=== PATIENT | female | born 1985 | race Caucasian/White ===

== ENCOUNTER 2018-04-03 14:33 | Emergency (ER) | payer OTHER ==
[~2018-04-03] VITALS: Ht 165.1 cm; Wt 135.0 kg
[2018-04-03 14:39] VITALS: BP 136/81; PULSE 89; RESP 16; TEMP 98.5; O2SAT 100
[2018-04-03] MEDS ORDERED: LAMO100 PO (14:58)
[2018-04-03] MEDS ORDERED: GABA800T PO (14:58)
[2018-04-03] MEDS ORDERED: CELE20TA PO (14:58)
[2018-04-03] MEDS ORDERED: CLON1 PO (14:58)
[2018-04-03] MEDS ORDERED: SYNT112T PO (14:58)
[2018-04-03] MEDS ORDERED: SODIUM CHLORIDE 0.9% FLUSH 10 ML FLUSH IV FLUSH PRN (15:00)
[2018-04-03 15:26] LABS: BILIRUBIN, URINE NEG (NEG); BLOOD, URINE MOD (NEG); GLUCOSE,URINE NEG (NEG); KETONE, URINE NEG (NEG); NITRITE,URINE NEG (NEG); URINE COLOR YELLOW (YELLW/STRAW); URINE LEUKOCYTE ESTERASE NEG (NEG)
[2018-04-03 15:27] LABS: AUTOMATED NEUTROPHIL # 4.1 TH/MM3 (1.8-7.7); BASOPHIL # 0.2 TH/MM3 (0-0.2); BASOPHIL % 2.6 % (0.0-2.0); EOSINOPHIL # 0.1 TH/MM3 (0-0.4); EOSINOPHIL % 1.7 % (0.0-4.0); HEMATOCRIT 33.2 % (35.0-46.0); HEMOGLOBIN 10.9 GM/DL (11.6-15.3); LYMPH % 22.9 % (9.0-44.0); LYMPHOCYTE # 1.4 TH/MM3 (1.0-4.8); MEAN CELL VOLUME 77.3 FL (80.0-100.0); MEAN CORPUSCULAR HEMOGLOBIN 25.3 PG (27.0-34.0); MEAN CORPUSCULAR HGB CONC 32.7 % (32.0-36.0); MEAN PLATELET VOLUME 7.7 FL (7.0-11.0); MONO % 6.8 % (0.0-8.0); MONOCYTE # 0.4 TH/MM3 (0-0.9); PLATELET COUNT 444 TH/MM3 (150-450); RED BLOOD COUNT 4.29 MIL/MM3 (4.00-5.30); RED CELL DISTRIBUTION WIDTH 15.9 % (11.6-17.2); WHITE BLOOD COUNT 6.2 TH/MM3 (4.0-11.0)
[2018-04-03] MEDS ORDERED: MORPHINE SULFATE 4 MG/ML INJ IV PUSH ONE ×2 (15:30→18:00)
--- NOTE | 2018-04-03 15:34 | PD ---
HPI Chief Complaint: GI Complaint Time Seen by Provider: 14:49 Travel History International Travel<30 days: No Contact w/Intl Traveler<30days: No Traveled to known affect area: No History of Present Illness HPI Patient is a 32-year-old female who presents to the emergency room for evaluation of right lower quadrant abdominal pain. Patient reports that 2 hours prior to arrival, she was driving her car on her way to [place], reports that she began to have right lower quadrant abdominal pain. Patient reports that pain is nonradiating nature, reports that pain has been constant. Patient denies any nausea or vomiting with symptoms. Patient denies any constipation or diarrhea. Patient with no fever or chills. Patient denies any dysuria, urinary urgency or frequency. Patient denies any pelvic discharge or bleeding, denies history of ovarian cysts in the past. Patient reports that she has had multiple abdominal surgeries in the past including a gastric bypass surgery as well as a cholecystectomy. PFSH Past Medical History Bipolar Disorder: Yes Diminished Hearing: No Thyroid Disease: Yes Tetanus Vaccination: < 5 Years Influenza Vaccination: No ?: Not LMP: 03/02/18 Past Surgical History Abdominal Surgery: Yes (GASTRIC BYPASS, PERFORATED ULCER, ADHESIONS, EXP LAP, INCISIONAL HERNIA ) Cholecystectomy: Yes Social History Alcohol Use: Yes (RARE) Tobacco Use: Yes (E CIGS) Substance Use: No Allergies-Medications (Allergen,Severity, Reaction): Coded Allergies: NSAIDS (Non-Steroidal Anti-Inflamma (Verified Allergy, Unknown, Ulcers, ) Penicillins (Verified Allergy, Unknown, Hives, 04/03/18) tramadol (Verified Allergy, Unknown, Seizures, 04/03/18) Reported Meds & Prescriptions Reported Meds & Active Scripts Active Macrobid (Nitrofurantoin Monoh/Nitrofur Macro) 100 Mg Cap 100 Mg PO BID 10 Days Reported Synthroid (Levothyroxine Sodium) 112 Mcg Tab 112 Mcg PO DAILY Klonopin (Clonazepam) 1 Mg Tab 1 Mg PO TID Gabapentin 800 Mg Tab 800 Mg PO TID Lamictal (Lamotrigine) 100 Mg Tab 100 Mg PO BID Celexa (Citalopram Hydrobromide) 20 Mg Tab 20 Mg PO DAILY Review of Systems General / Constitutional: No: Fever, Chills Eyes: No: Visual changes HENT: No: Headaches Cardiovascular: No: Chest Pain or Discomfort Respiratory: No: Shortness of Breath Gastrointestinal: Positive: Abdominal Pain, No: Nausea, Vomiting, Diarrhea, Constipation Genitourinary: No: Urgency, Frequency, Dysuria Musculoskeletal: No: Pain Skin: No Rash Neurologic: No: Weakness Psychiatric: No: Depression Endocrine: No: Polydipsia Hematologic/Lymphatic: No: Easy Bruising Physical Exam Narrative GENERAL: Moderate distress SKIN: Focused skin assessment warm/dry. HEAD: Atraumatic. Normocephalic. EYES: Pupils equal and round. No scleral icterus. No injection or drainage. ENT: No nasal bleeding or discharge. Mucous membranes pink and moist. NECK: Trachea midline. No JVD. CARDIOVASCULAR: Regular rate and rhythm. No murmur appreciated. RESPIRATORY: No accessory muscle use. Clear to auscultation. Breath sounds equal bilaterally. GASTROINTESTINAL: Abdomen soft, patient with tenderness of right lower quadrant with guarding on exam, nondistended. Hepatic and splenic margins not palpable. : exam performed with RN at bedside, patient with no CMT or adnexal tenderness , patient with small amount of blood in vaginal vault MUSCULOSKELETAL: No obvious deformities. No clubbing. No cyanosis. No edema. NEUROLOGICAL: Awake and alert. No obvious cranial nerve deficits. Motor grossly within normal limits. Normal speech. PSYCHIATRIC: Appropriate mood and affect; insight and judgment normal. Data Data Last Documented VS Vital Signs Date Time Temp Pulse Resp B/P (MAP) Pulse Ox O2 Delivery O2 Flow Rate FiO2 04/03/18 17:08 18 04/03/18 14:39 98.5 89 136/81 (99) 100 Orders Orders Complete Blood Count With Diff (04/03/18 14:49) Comprehensive Metabolic Panel (04/03/18 14:49) Lipase (04/03/18 14:49) Urinalysis - C+S If Indicated (04/03/18 14:49) Iv Access Insert/Monitor (04/03/18 14:49) Ecg Monitoring (04/03/18 14:49) Oximetry (04/03/18 14:49) Sodium Chloride 0.9% Flush (Ns Flush) (04/03/18 15:00) Ed Urine Pregnancytest Poc (04/03/18 14:49) Ct Abd/Pel W Iv Contrast(Rout) (04/03/18 15:29) Morphine Inj (Morphine Inj) (04/03/18 15:30) Urine Culture (04/03/18 14:40) Acetaminophen 1000 Mg/100 Ml (Ofirmev 10 (04/03/18 16:15) Iohexol 350 Inj (Omnipaque 350 Inj) (04/03/18 16:28) Gc And Chlamydia Pcr (04/03/18 17:09) Wet Prep Profile (04/03/18 17:09) Ondansetron Odt (Zofran Odt) (04/03/18 17:15) Ceftriaxone Inj (Rocephin Inj) (04/03/18 17:15) Morphine Inj (Morphine Inj) (04/03/18 18:00) Us Pelvis Comp W Dop Transvag (04/03/18 17:09) Ed Discharge Order (04/03/18 19:25) Labs Laboratory Tests Test 04/03/18 14:40 04/03/18 15:00 04/03/18 18:00 Urine Collection Type CLEAN CATCH Urine Color YELLOW Urine Turbidity CLEAR Urine pH 6.0 Urine Specific [place]win GREATER/EQUAL 1.030 Urine Protein TRACE mg/dL Urine Glucose (UA) NEG mg/dL Urine Ketones NEG mg/dL Urine Occult Blood MOD Urine Nitrite NEG Urine Bilirubin NEG Urine Urobilinogen 0.2 MG/DL Urine Leukocyte Esterase NEG Urine RBC 10-14 /hpf Urine WBC 25-49 /hpf Urine Squamous Epithelial Cells > 8 /hpf Urine Bacteria MOD /hpf Microscopic Urinalysis Comment CULTURE INDICATED Urine Collection Time 14:40 White Blood Count 6.2 TH/MM3 Red Blood Count 4.29 MIL/MM3 Hemoglobin 10.9 GM/DL Hematocrit 33.2 % Mean Corpuscular Volume 77.3 FL Mean Corpuscular Hemoglobin 25.3 PG Mean Corpuscular Hemoglobin Concent 32.7 % Red Cell Distribution Width 15.9 % Platelet Count 444 TH/MM3 Mean Platelet Volume 7.7 FL Neutrophils (%) (Auto) 66.0 % Lymphocytes (%) (Auto) 22.9 % Monocytes (%) (Auto) 6.8 % Eosinophils (%) (Auto) 1.7 % Basophils (%) (Auto) 2.6 % Neutrophils # (Auto) 4.1 TH/MM3 Lymphocytes # (Auto) 1.4 TH/MM3 Monocytes # (Auto) 0.4 TH/MM3 Eosinophils # (Auto) 0.1 TH/MM3 Basophils # (Auto) 0.2 TH/MM3 CBC Comment DIFF FINAL Differential Comment Blood Urea Nitrogen 11 MG/DL Creatinine 0.81 MG/DL Random Glucose 92 MG/DL Total Protein 7.4 GM/DL Albumin 3.6 GM/DL Calcium Level 8.6 MG/DL Alkaline Phosphatase 115 U/L Aspartate Amino Transf (AST/SGOT) 16 U/L Alanine Aminotransferase (ALT/SGPT) 22 U/L Total Bilirubin 0.3 MG/DL Sodium Level 137 MEQ/L Potassium Level 4.4 MEQ/L Chloride Level 110 MEQ/L Carbon Dioxide Level 20.7 MEQ/L Anion Gap 6 MEQ/L Estimat Glomerular Filtration Rate 82 ML/MIN Lipase 129 U/L Clue Cells (Wet Prep) NONE SEEN Vaginal Trichomonas (Wet Prep) NONE SEEN Vaginal Yeast (Wet Prep) NONE SEEN MDM Medical Decision Making Medical Screen Exam Complete: Yes Emergency Medical Condition: Yes Medical Record Reviewed: Yes Interpretation(s) Vital Signs Date Time Temp Pulse Resp B/P (MAP) Pulse Ox O2 Delivery O2 Flow Rate FiO2 04/03/18 14:39 98.5 89 16 136/81 (99) 100 Differential Diagnosis Appendicitis, ovarian cyst, ovarian torsion, gastroenteritis, uti, sbo Narrative Course Patient is a 32-year-old female who presents the emergency room with complaints of right lower quadrant abdominal pain which began 2 hours prior to arrival to the emergency room. During the course of the patients emergency department visit, the patients history, examination, and differential diagnosis were reviewed with the patient. The patient was placed on a front desk monitor with oximetry and frequent blood pressure monitoring. The patient had an IV access obtained and blood work sent for analysis. The patient was initially provided IV morphine for pain The patients laboratory studies were reviewed and remarkable for Laboratory Tests Test 04/03/18 14:40 04/03/18 15:00 Urine Collection Type CLEAN CATCH Urine Color YELLOW (YELLW/STRAW) Urine Turbidity CLEAR (CLEAR) Urine pH 6.0 (5.0-8.5) Urine Specific [place] GREATER/EQUAL 1.030 Urine Protein TRACE mg/dL (NEG-TRACE) Urine Glucose (UA) NEG mg/dL (NEG) Urine Ketones NEG mg/dL (NEG) Urine Occult Blood MOD (NEG) Urine Nitrite NEG (NEG) Urine Bilirubin NEG (NEG) Urine Urobilinogen 0.2 MG/DL (LESS THAN Urine Leukocyte Esterase NEG (NEG) Urine RBC 10-14 /hpf (0-3) Urine WBC 25-49 /hpf (0-5) Urine Squamous Epithelial Cells > 8 /hpf (0-5) Urine Bacteria MOD /hpf (NONE) Microscopic Urinalysis Comment CULTURE INDICATED Urine Collection Time 14:40 White Blood Count 6.2 TH/MM3 (4.0-11.0) Red Blood Count 4.29 MIL/MM3 (4.00-5.30) Hemoglobin 10.9 GM/DL (11.6-15.3) Hematocrit 33.2 % (35.0-46.0) Mean Corpuscular Volume 77.3 FL (80.0-100.0) Mean Corpuscular Hemoglobin 25.3 PG (27.0-34.0) Mean Corpuscular Hemoglobin Concent 32.7 % (32.0-36.0) Red Cell Distribution Width 15.9 % (11.6-17.2) Platelet Count 444 TH/MM3 (150-450) Mean Platelet Volume 7.7 FL (7.0-11.0) Neutrophils (%) (Auto) 66.0 % (16.0-70.0) Lymphocytes (%) (Auto) 22.9 % (9.0-44.0) Monocytes (%) (Auto) 6.8 % (0.0-8.0) Eosinophils (%) (Auto) 1.7 % (0.0-4.0) Basophils (%) (Auto) 2.6 % (0.0-2.0) Neutrophils # (Auto) 4.1 TH/MM3 (1.8-7.7) Lymphocytes # (Auto) 1.4 TH/MM3 (1.0-4.8) Monocytes # (Auto) 0.4 TH/MM3 (0-0.9) Eosinophils # (Auto) 0.1 TH/MM3 (0-0.4) Basophils # (Auto) 0.2 TH/MM3 (0-0.2) CBC Comment DIFF FINAL Differential Comment Blood Urea Nitrogen 11 MG/DL (7-18) Creatinine 0.81 MG/DL (0.50-1.00) Random Glucose 92 MG/DL (74-106) Total Protein 7.4 GM/DL (6.4-8.2) Albumin 3.6 GM/DL (3.4-5.0) Calcium Level 8.6 MG/DL (8.5-10.1) Alkaline Phosphatase 115 U/L (45-117) Aspartate Amino Transf (AST/SGOT) 16 U/L (15-37) Alanine Aminotransferase (ALT/SGPT) 22 U/L (10-53) Total Bilirubin 0.3 MG/DL (0.2-1.0) Sodium Level 137 MEQ/L (136-145) Potassium Level 4.4 MEQ/L (3.5-5.1) Chloride Level 110 MEQ/L (98-107) Carbon Dioxide Level 20.7 MEQ/L (21.0-32.0) Anion Gap 6 MEQ/L (5-15) Estimat Glomerular Filtration Rate 82 ML/MIN (>89) Lipase 129 U/L (73-393) Radiology studies were reviewed and remarkable for Last Impressions Abdomen/Pelvis CT 04/03/18 1529 Signed Impressions: Service Date/Time: Tuesday, April 03, 2018 16:21 - CONCLUSION: 1. Normal appendix. 2. Slightly prominent endometrium which may be due to patient's phase of menstrual cycle. 3. Postsurgical changes of prior gastric bypass. 4. No definite acute CT abnormality to explain patient's abdominal pain. Rex Rubio MD Patient reevaluated, pt reports that she is not feeling any better, will remedicate, given her continued pain, pelvic us ordered, patient is agreeable to pelvic exam 5:25 PM: Vaginal exam was performed, patient with scant amount of blood in vaginal vault, patient with no CMT or adnexal tenderness. Pelvic ultrasound pending. Last Impressions Abdomen/Pelvis/Transvag US 04/03/18 [id number] Signed Impressions: Service Date/Time: Tuesday, April 03, 2018 18:10 - CONCLUSION: 1. Limited evaluation due to patient's body habitus. 2. Probable nabothian cysts. 3. Otherwise, unremarkable pelvic ultrasound. Rex Rubio MD Abdomen/Pelvis CT 04/03/18 1528 Signed Impressions: Service Date/Time: Tuesday, April 03, 2018 16:21 - CONCLUSION: 1. Normal appendix. 2. Slightly prominent endometrium which may be due to patient's phase of menstrual cycle. 3. Postsurgical changes of prior gastric bypass. 4. No definite acute CT abnormality to explain patient's abdominal pain. Rex Rubio MD Pelvic ultrasound essentially unremarkable, patient's only pertinent positive is UA which shows 25-49 white blood cells, 10-14 white blood cells, moderate bacteria. Patient was given a gram of Rocephin in the emergency room, urine culture was sent. Patient will follow up with urine culture from today. Signs and symptoms of an acute abdomen was reviewed with patient in detail, she will return to the emergency room as needed. Diagnosis Primary Impression: Abdominal pain Qualified Codes: R10.30 - Lower abdominal pain, unspecified Additional Impression: UTI (urinary tract infection) Qualified Codes: N30.01 - Acute cystitis with hematuria Patient Instructions: General Instructions, Narcotic given in the ED Additional Instructions: Please provide patient with a copy of their lab work and studies at discharge* * Please follow up with your primary care doctor in 1-2 days Return to the ER if symptoms worsen or progress Return to the ER as needed Please follow-up with all cultures from today Med/Other Pt SpecificInfo: Prescription(s) given Scripts Nitrofurantoin Monohydrate Macrocrystals (Macrobid) 100 Mg Cap 100 MG PO BID for Infection for 10 Days, #20 CAP 0 Refills Prov: Carly Bliss DO 04/03/18 Disposition: 01 DISCHARGE HOME Condition: Stable Carly Bliss DO April 03, 2018 15:34
[2018-04-03 15:36] LABS: CHLORIDE 110 MEQ/L (98-107); SODIUM (NA) 137 MEQ/L (136-145)
[2018-04-03 15:40] LABS: ALBUMIN 3.6 GM/DL (3.4-5.0); BICARBONATE 20.7 MEQ/L (21.0-32.0); BLOOD UREA NITROGEN 11 MG/DL (7-18); CALCIUM 8.6 MG/DL (8.5-10.1); GLUCOSE,RANDOM 92 MG/DL (74-106)
[2018-04-03 15:41] LABS: BACTERIA, URINE MOD /hpf; SQUAMOUS EPITHELIAL CELL URINE > 8 /hpf (0-5)
[2018-04-03 15:43] LABS: ALT (GPT) 22 U/L (10-53); AST (GOT) 16 U/L (15-37); CREATININE 0.81 MG/DL (0.50-1.00); GLOMERULAR FILTRATION RATE 82 ML/MIN (>89)
[2018-04-03 15:44] LABS: TOTAL BILIRUBIN ADULT 0.3 MG/DL (0.2-1.0)
[2018-04-03 15:45] LABS: TOTAL PROTEIN 7.4 GM/DL (6.4-8.2)
[2018-04-03 15:46] LABS: ALKALINE PHOSPHATASE 115 U/L (45-117)
[2018-04-03] MEDS ORDERED: ACETAMINOPHEN 1000 MG/100 ML 100 ML IV ONE (16:15)
[2018-04-03] MEDS ORDERED: IOHEXOL 350 MG/ML 10 ML VIAL (for RAD DIAG) IVCONTRAST ONE (16:28)
--- NOTE | 2018-04-03 16:58 | RADRPT ---
EXAM DATE/TIME: 04/03/2018 16:21 [facility] COMPARISON: No previous studies available for comparison. INDICATIONS : Right lower quadrant pain. IV CONTRAST: 95 cc Omnipaque 350 (iohexol) IV ORAL CONTRAST: No oral contrast ingested. RADIATION DOSE: 22.39 CTDIvol (mGy) MEDICAL HISTORY : None SURGICAL HISTORY : Gastric bypass. ENCOUNTER: Initial ACUITY: 1 day PAIN SCALE: 7/10 LOCATION: Right lower quadrant TECHNIQUE: Volumetric scanning of the abdomen and pelvis was performed. Using automated exposure control and ad justment of the mA and/or kV according to patient size, radiation dose was kept as low as reasonably achievable to obtain optimal diagnostic quality images. DICOM format image data is available electro nically for review and comparison. FINDINGS: LOWER LUNGS: The visualized lower lungs are clear. LIVER: Homogeneous density without lesion. There is no dilation of the biliary tree. SPLEEN: Normal size without lesion. PANCREAS: Within normal limits. KIDNEYS: Normal in size and shape. There is no mass, stone or hydronephrosis. ADRENAL GLANDS: Within normal limits. VASCULAR: There is no aortic aneurysm. BOWEL/MESENTERY: Postsurgical changes of prior gastric bypass. Appendix is visualized and within normal limits. Bowel is unremarkable without evidence for obstruction. No free fluid or drainable fluid collections. No fr ee air. ABDOMINAL WALL: Diastases with eventration of abdominal fat but no definite hernia. RETROPERITONEUM: There is no lymphadenopathy. BLADDER: No wall thickening or mass. REPRODUCTIVE: Slightly prominent endometrium. INGUINAL: There is no lymphadenopathy or hernia. MUSCULOSKELETAL: Within normal limits for patient age. CONCLUSION: 1. Normal appendix. 2. Slightly prominent endometrium which may be due to patient's phase of menstrual cycle. 3. Postsurgical changes of prior gastric bypass. 4. No definite acute CT abnormality to explain patient's abdominal pain. Rex Rubio MD on April 03, 2018 at 16:52 Board Certified Radiologist. This report was verified electronically.
[2018-04-03 17:08] VITALS: RESP 18
[2018-04-03] MEDS ORDERED: cefTRIAXone INJ 1,000 MG in SODIUM CHLORIDE 0.9% INJ 100 ML IV ONE (17:15)
[2018-04-03] MEDS ORDERED: ONDANSETRON ODT 4 MG TAB PO ONE (17:15)
--- NOTE | 2018-04-03 18:55 | RADRPT ---
EXAM DATE/TIME: 04/03/2018 18:10 [facility] COMPARISON: No previous studies available for comparison. INDICATIONS : Pelvic pain. MEDICAL HISTORY : Thyroid disease. Bipolar disorder. Tobacco use. SURGICAL HISTORY : Cholecystectomy. Gastric bypass. Perforated ulcer. Adhesions. Exploratory laprascopy. Incisional hernia. ENCOUNTER: Initial ACUITY: 1 day PAIN SCORE: 6/10 LOCATION: Bilateral pelvis MEASUREMENTS: UTERUS: 6.9 x 4.2 x 3.8 cm ENDOMETRIAL STRIPE: 7 mm RIGHT OVARY: 2.0 x 1.5 x 1.2 cm LEFT OVARY: 2.6 x 1.4 x 1.2 cm FINDINGS: Limited evaluation due to patient's body habitus. UTERUS: The myometrium has homogeneous echotexture without mass. Several small subcentimeter cystic lesions in the cervix likely reflect nabothian cysts. RIGHT OVARY: Ovary contains no mass or significant cystic lesion. LEFT OVARY: Ovary contains no mass or significant cystic lesion. MISCELLANEOUS: No free fluid. CONCLUSION: 1. Limited evaluation due to patient's body habitus. 2. Probable nabothian cysts. 3. Otherwise, unremarkable pelvic ultrasound. Rex Rubio MD on April 03, 2018 at 18:51 Board Certified Radiologist. This report was verified electronically.
[2018-04-03] MEDS ORDERED: MACR100C2 PO (19:22)
[2018-04-03 19:35] VITALS: BP 128/78
== END 2018-04-03 19:35 | disposition home or self-care (01) ==
LOC: PHED 14:33
DX: R10.30 Lower abdominal pain, unspecified (principal); N30.01 Acute cystitis with hematuria; E07.9 Disorder of thyroid, unspecified
CPT/HCPCS: 74177; 76830; 76856; 80053; 81001; 83690; 84703; 85025; 87086; 87210; 87491; 87591; 93975; 96365; 96367; 96375; 99285; J0131; J0696; J2270; Q9967

== ENCOUNTER 2018-04-19 20:24 | Emergency (ER) | payer OTHER ==
[~2018-04-19] VITALS: Ht 165.1 cm; Wt 135.1 kg
[~2018-04-19 20:24] MED LIST: CELE20TA PO; CLON1 PO; GABA800T PO; LAMO100 PO; MACR100C2 PO; SYNT112T PO
[2018-04-19 20:27] VITALS: BP 153/84; PULSE 124; RESP 18; TEMP 97.7; O2SAT 98
[2018-04-19] MEDS ORDERED: SODIUM CHLOR 0.9% 1000 ML INJ 1,000 ML IV SCH (20:43)
[2018-04-19] MEDS ORDERED: SODIUM CHLORIDE 0.9% FLUSH 10 ML FLUSH IV FLUSH PRN (20:45)
[2018-04-19] MEDS ORDERED: MORPHINE SULFATE 4 MG/ML INJ IV PUSH ONE (20:45)
[2018-04-19 21:10] LABS: BILIRUBIN, URINE NEG (NEG); BLOOD, URINE NEG (NEG); GLUCOSE,URINE NEG (NEG); KETONE, URINE 15 mg/dL (NEG); NITRITE,URINE NEG (NEG); URINE COLOR YELLOW (YELLW/STRAW); URINE LEUKOCYTE ESTERASE NEG (NEG)
[2018-04-19 21:11] LABS: AUTOMATED NEUTROPHIL # 9.3 TH/MM3 (1.8-7.7); BASOPHIL # 0.3 TH/MM3 (0-0.2); BASOPHIL % 2.5 % (0.0-2.0); EOSINOPHIL # 0.2 TH/MM3 (0-0.4); EOSINOPHIL % 1.7 % (0.0-4.0); HEMOGLOBIN 9.8 GM/DL (11.6-15.3); LYMPH % 16.2 % (9.0-44.0); MEAN CELL VOLUME 77.9 FL (80.0-100.0); MEAN CORPUSCULAR HEMOGLOBIN 23.8 PG (27.0-34.0); MEAN CORPUSCULAR HGB CONC 30.6 % (32.0-36.0); MEAN PLATELET VOLUME 7.1 FL (7.0-11.0); MONO % 6.1 % (0.0-8.0); MONOCYTE # 0.8 TH/MM3 (0-0.9); NEUT % 73.5 % (16.0-70.0); PLATELET COUNT 463 TH/MM3 (150-450); RED BLOOD COUNT 4.11 MIL/MM3 (4.00-5.30); RED CELL DISTRIBUTION WIDTH 17.2 % (11.6-17.2); WHITE BLOOD COUNT 12.6 TH/MM3 (4.0-11.0)
[2018-04-19 21:16] LABS: BACTERIA, URINE RARE /hpf; WBC, URINE 0-2 /hpf (0-5)
[2018-04-19 21:19] LABS: CHLORIDE 111 MEQ/L (98-107); SODIUM (NA) 138 MEQ/L (136-145)
[2018-04-19 21:22] LABS: ALBUMIN 3.6 GM/DL (3.4-5.0); CALCIUM 8.4 MG/DL (8.5-10.1)
[2018-04-19 21:23] LABS: BICARBONATE 19.1 MEQ/L (21.0-32.0); BLOOD UREA NITROGEN 21 MG/DL (7-18); GLUCOSE,RANDOM 77 MG/DL (74-106)
[2018-04-19 21:24] LABS: PROTHROMBIN TIME - PATIENT 10.3 SEC (9.8-11.6)
[2018-04-19 21:25] LABS: ALT (GPT) 20 U/L (10-53); AST (GOT) 17 U/L (15-37)
[2018-04-19 21:26] LABS: CREATININE 0.74 MG/DL (0.50-1.00); GLOMERULAR FILTRATION RATE 92 ML/MIN (>89)
[2018-04-19 21:27] LABS: TOTAL BILIRUBIN ADULT 0.2 MG/DL (0.2-1.0); TOTAL PROTEIN 7.7 GM/DL (6.4-8.2)
[2018-04-19 21:28] LABS: ALKALINE PHOSPHATASE 117 U/L (45-117)
[2018-04-19] MEDS ORDERED: ONDANSETRON ODT 4 MG TAB PO ONE (21:30)
[2018-04-19 21:32] VITALS: RESP 16; O2SAT 98
[2018-04-19] MEDS ORDERED: IOHEXOL 350 MG/ML 10 ML VIAL (for RAD DIAG) IVCONTRAST ONE (22:03)
[2018-04-19 22:12] VITALS: RESP 17
--- NOTE | 2018-04-19 22:14 | RADRPT ---
EXAM DATE: 04/19/2018 10:08 PM EDT AGE/SEX: 32 years / Female INDICATIONS: Right lower quadrant pain. CLINICAL DATA: This is the patient's initial encounter. Patient reports that signs and symptoms have been present for 2 days and indicates a pain score of 8/10. MEDICAL/SURGICAL HISTORY: None. Gastric bypass. Cholecystectomy. Incisional hernia repair. ORAL CONTRAST: No oral contrast ingested. RADIATION DOSE: 22.39 CTDI (mGy) COMPARISON: [facility], CT ABDOMEN & PELVIS W CONTRAST, 04/03/2018. . TECHNIQUE: Multiple contiguous axial images were obtained through the abdomen and pelvis following b olus infusion of 100 ml Omnipaque 350 (iohexol) nonionic water-soluble contrast as a single exam do se. No oral contrast ingested. Using automated exposure control and adjustment of the mA and/or kV a ccording to patient size, the radiation dose was kept as low as reasonably achievable to obtain optim al diagnostic quality images. FINDINGS: The patient is status post gastric bypass procedure. There is a broad-based abdominal wall hernia at the level of the umbilicus with diastases of the rectus musculature. No evidence of bowel obstruction , free fluid or free air. Spleen, pancreas, adrenal glands, kidneys, liver unremarkable. Cholecystect sai clips are present. The appendix is normal. There is no adenopathy or aneurysm. The uterus and ova juan are normal in appearance. The osseous structures are intact. Lung bases are clear. CONCLUSION: 1. No acute findings. Electronically signed by: Ziggy Morales MD 04/19/2018 10:13 PM EDT
[2018-04-19] MEDS ORDERED: ACETAMINOPHEN/HYDROcodone 325 MG/5 MG TAB PO ONE (22:30)
[2018-04-19 22:47] VITALS: BP 114/62
[2018-04-19] MEDS ORDERED: NORC5TAB PO (22:48)
--- NOTE | 2018-04-19 22:48 | PD ---
HPI Chief Complaint: Abdominal Pain Time Seen by Provider: 20:32 Travel History International Travel<30 days: No Contact w/Intl Traveler<30days: No Traveled to known affect area: No History of Present Illness HPI Patient is a 32-year-old female who comes in complaining of abdominal pain. She says the pain started today. She says the pain is on the right side of her abdomen with no radiation. She has had some nausea, but no vomiting. She has tried [id number] pain medicine without relief of her symptoms. She denies fever chills. She is moving her bowels normally. She has had multiple abdominal surgeries in the past and is known to have a ventral hernia. She denies any urinary symptoms or vaginal discharge. Severity is mild to moderate. PFSH Past Medical History Bipolar Disorder: Yes Diminished Hearing: No Thyroid Disease: Yes Tetanus Vaccination: < 5 Years Influenza Vaccination: No ?: Not LMP: 04/14/18 Past Surgical History Abdominal Surgery: Yes (GASTRIC BYPASS, PERFORATED ULCER, ADHESIONS, EXP LAP, INCISIONAL HERNIA ) Cholecystectomy: Yes Social History Alcohol Use: Yes (RARE) Tobacco Use: Yes (E CIGS) Substance Use: No Allergies-Medications (Allergen,Severity, Reaction): Coded Allergies: NSAIDS (Non-Steroidal Anti-Inflamma (Verified Allergy, Unknown, Ulcers, 04/19/18) Penicillins (Verified Allergy, Unknown, Hives, 04/19/18) tramadol (Verified Allergy, Unknown, Seizures, 04/19/18) Reported Meds & Prescriptions Reported Meds & Active Scripts Active Reported Synthroid (Levothyroxine Sodium) 112 Mcg Tab 112 Mcg PO DAILY Klonopin (Clonazepam) 1 Mg Tab 1 Mg PO TID Gabapentin 800 Mg Tab 800 Mg PO TID Lamictal (Lamotrigine) 100 Mg Tab 100 Mg PO BID Celexa (Citalopram Hydrobromide) 20 Mg Tab 20 Mg PO DAILY Review of Systems Except as stated in HPI: all other systems reviewed are Neg General / Constitutional: No: Fever, Chills HENT: No: Headaches, Lightheadedness Cardiovascular: No: Chest Pain or Discomfort Respiratory: No: Shortness of Breath Gastrointestinal: Positive: Nausea, Abdominal Pain, No: Vomiting Genitourinary: No: Dysuria Musculoskeletal: No: Myalgias, Edema Skin: No Rash, No Change in Pigmentation Neurologic: No: Weakness, Dizziness Physical Exam Narrative GENERAL: Awake and alert, in no acute distress. SKIN: Focused skin assessment warm/dry. No wounds or signs of infection. HEAD: Atraumatic. Normocephalic. EYES: Pupils equal and round. No scleral icterus. ENT: Mucous membranes pink and moist. NECK: Trachea midline. No JVD. CARDIOVASCULAR: Regular rate and rhythm. No murmur appreciated. RESPIRATORY: No accessory muscle use. Clear to auscultation. Breath sounds equal bilaterally. GASTROINTESTINAL: Abdomen soft, nondistended. Tender to palpation of the right middle abdomen. No rebound or guarding. MUSCULOSKELETAL: No obvious deformities. No clubbing. No cyanosis. No edema. NEUROLOGICAL: Awake and alert. No obvious cranial nerve deficits. Motor grossly within normal limits. Normal speech. PSYCHIATRIC: Appropriate mood and affect; insight and judgment normal. Data Data Last Documented VS Vital Signs Date Time Temp Pulse Resp B/P (MAP) Pulse Ox O2 Delivery O2 Flow Rate FiO2 04/19/18 22:12 17 04/19/18 21:32 98 Room Air 04/19/18 20:27 97.7 124 153/84 (107) Orders Orders Complete Blood Count With Diff (04/19/18 20:43) Comprehensive Metabolic Panel (04/19/18 20:43) Lipase (04/19/18 20:43) Lactic Acid (04/19/18 20:43) Prothrombin Time / Inr (Pt) (04/19/18 20:43) Act Partial Throm Time (Ptt) (04/19/18 20:43) Urinalysis - C+S If Indicated (04/19/18 20:43) Ct Abd/Pel W Iv Contrast(Rout) (04/19/18 20:43) Iv Access Insert/Monitor (04/19/18 20:43) Ecg Monitoring (04/19/18 20:43) Oximetry (04/19/18 20:43) Morphine Inj (Morphine Inj) (04/19/18 20:45) Sodium Chlor 0.9% 1000 Ml Inj (Ns 1000 M (04/19/18 20:43) Sodium Chloride 0.9% Flush (Ns Flush) (04/19/18 20:45) Ed Urine Pregnancytest Poc (04/19/18 20:43) Ondansetron Odt (Zofran Odt) (04/19/18 21:30) Iohexol 350 Inj (Omnipaque 350 Inj) (04/19/18 22:03) Acetamin-Hydrocod 325-5 Mg ([place] 5-325 (04/19/18 22:30) Labs Laboratory Tests Test 04/19/18 21:00 White Blood Count 12.6 TH/MM3 Red Blood Count 4.11 MIL/MM3 Hemoglobin 9.8 GM/DL Hematocrit 32.0 % Mean Corpuscular Volume 77.9 FL Mean Corpuscular Hemoglobin 23.8 PG Mean Corpuscular Hemoglobin Concent 30.6 % Red Cell Distribution Width 17.2 % Platelet Count 463 TH/MM3 Mean Platelet Volume 7.1 FL Neutrophils (%) (Auto) 73.5 % Lymphocytes (%) (Auto) 16.2 % Monocytes (%) (Auto) 6.1 % Eosinophils (%) (Auto) 1.7 % Basophils (%) (Auto) 2.5 % Neutrophils # (Auto) 9.3 TH/MM3 Lymphocytes # (Auto) 2.0 TH/MM3 Monocytes # (Auto) 0.8 TH/MM3 Eosinophils # (Auto) 0.2 TH/MM3 Basophils # (Auto) 0.3 TH/MM3 CBC Comment AUTO DIFF Differential Comment AUTO DIFF CONFIRMED Platelet Estimate HIGH Platelet Morphology Comment NORMAL Prothrombin Time 10.3 SEC Prothromb Time International Ratio 1.0 RATIO Activated Partial Thromboplast Time 22.6 SEC Urine Color YELLOW Urine Turbidity CLEAR Urine pH 6.0 Urine Specific [place] 1.025 Urine Protein NEG mg/dL Urine Glucose (UA) NEG mg/dL Urine Ketones 15 mg/dL Urine Occult Blood NEG Urine Nitrite NEG Urine Bilirubin NEG Urine Urobilinogen 0.2 MG/DL Urine Leukocyte Esterase NEG Urine WBC 0-2 /hpf Urine Bacteria RARE /hpf Microscopic Urinalysis Comment CULT NOT INDICATED Blood Urea Nitrogen 21 MG/DL Creatinine 0.74 MG/DL Random Glucose 77 MG/DL Total Protein 7.7 GM/DL Albumin 3.6 GM/DL Calcium Level 8.4 MG/DL Alkaline Phosphatase 117 U/L Aspartate Amino Transf (AST/SGOT) 17 U/L Alanine Aminotransferase (ALT/SGPT) 20 U/L Total Bilirubin 0.2 MG/DL Sodium Level 138 MEQ/L Potassium Level 4.2 MEQ/L Chloride Level 111 MEQ/L Carbon Dioxide Level 19.1 MEQ/L Anion Gap 8 MEQ/L Estimat Glomerular Filtration Rate 92 ML/MIN Lactic Acid Level 1.8 mmol/L Lipase 217 U/L [facility] Medical Decision Making Medical Screen Exam Complete: Yes Emergency Medical Condition: Yes Medical Record Reviewed: Yes Differential Diagnosis Hernia versus appendicitis versus colitis versus gastritis Narrative Course Patient is a 32-year-old female comes in complaining of abdominal pain. Exam shows mild tenderness to the right side of the abdomen. IV established, labs sent. Labs showing mild elevation white blood cell count, no other acute abnormalities. CT abdomen and pelvis performed shows the hernia, no acute abnormalities. Last 24 hours Impressions Abdomen/Pelvis CT 04/19/182042 Signed Impressions: CONCLUSION: 1. No acute findings. Patient given pain medicine, IV fluids, Zofran. She reports feeling better. She will be discharged with a few [place]. Advised follow-up with her primary doctor. Advised return to the ED as needed for any worsening symptoms. Diagnosis Primary Impression: Abdominal pain Qualified Codes: R10.9 - Unspecified abdominal pain Referrals: Primary Care Physician call for appointment Patient Instructions: Abdominal Pain (ED), General Instructions, Narcotic given in the ED Departure Forms: Tests/Procedures Additional Instructions: Follow-up with your doctor. Take pain medicine as needed. Return to the ED as needed for any worsening symptoms. Scripts Hydrocodone-Acetaminophen ([place]) 5 Mg-325 Mg Tab 1 TAB PO Q6H Y for PAIN, #7 TAB 0 Refills Prov: Iris Fong MD 04/19/18 Disposition: 01 DISCHARGE HOME Condition: Stable Iris Fong MD Apr 19, 2018 22:48
== END 2018-04-19 23:08 | disposition home or self-care (01) ==
LOC: PHED 20:24
DX: R10.9 Unspecified abdominal pain (principal); R11.0 Nausea; F31.9 Bipolar disorder, unspecified; E07.9 Disorder of thyroid, unspecified; F17.290 Nicotine dependence, other tobacco product, uncomplicated; Z88.0 Allergy status to penicillin; Z88.8 Allergy status to other drugs, medicaments and biological substances; Z79.899 Other long term (current) drug therapy
CPT/HCPCS: 74177; 80053; 81001; 83605; 83690; 84703; 85025; 85610; 85730; 96361; 96374; 99284; J2270; J7030; Q9967